=== PATIENT | male | born 1980 | race Caucasian/White ===

== ENCOUNTER 2019-11-11 12:16 | Emergency (ER) | payer BC, SELFPAY ==
[2019-11-11 12:21] VITALS: BP 115/74; PULSE 73; RESP 16; TEMP 37.5; O2SAT 97
--- NOTE | 2019-11-11 12:40 | ED.URI ---
HPI - URI/Sore Throat General Chief Complaint: Upper Respiratory Infection Stated Complaint: FEVER/BODY ACHES Time Seen by Provider: 11/11/19 12:40 Source: patient and RN notes reviewed Mode of arrival: ambulatory Limitations: no limitations History of Present Illness HPI Narrative: 39-year-old male accompanied by family presents to express care with complaints of sore throat, sinus congestion and sinus pressure with headache,body aches with fevers since Saturday. Patient states his fever has been as high as 103.8 he has been taking Tylenol and ibuprofen for his symptoms. Patient denies anyone else in household to be ill denies any recent travel or any shortness of breath. Patient has clear lungs upon auscultation, no tachypnea or accessory muscle use SaO2 97% on room air MD elicited complaint: fever, sore throat, rhinorrhea, nasal congestion, sinus pain and other (Body aches) Onset (ago): day(s) (4) Consistency: constant Severity: moderate Pain scale (0-10): 3 Description of mucous: clear Able to tolerate fluids by mouth: Yes Exacerbating factors: swallowing Relieving factors: nothing Associated symptoms: fever, chills, myalgias, rhinorrhea, nasal congestion and sore throat Treatments prior to arrival: acetaminophen Related Data Allergies Allergy/AdvReac Type Severity Reaction Status Date / Time No Known Allergies Allergy Unverified 12/19/14 11:47 Review of Systems Review of Systems: Narrative: CONSTITUTIONAL: positive fever, chills, or sweats. EYES: Denies visual changes, redness, or discharge. ENT: positive rhinorrhea, congestion, sore throat, no otalgia. CARDIOVASCULAR: Denies chest pain, palpitations, or edema. RESPIRATORY: Denies cough or dyspnea. GASTROINTESTINAL: Denies abdominal pain, nausea, vomiting, or diarrhea. GENITOURINARY: Denies dysuria or hematuria. SKIN: Denies rash or itching. MUSCULOSKELETAL: Denies back pain, joint pain, positive body aches NEUROLOGIC: Positive headache, numbness, or weakness. PSYCHIATRIC: Denies anxiety or depression. All systems reviewed & are unremarkable except as noted in HPI and below PMFSH Past Medical History Medical History (Updated 11/11/19 @ 13:14 by Christine Mueller NP) No significant medical problems Social History Social History (Updated 03/18/20 @ 13:13 by Christine Mueller NP) Smoking status: Never smoker Alcohol intake: current Living arrangements: with family Gender identity (if verbalized by the patient): Male Comments At time of signature, agree with nursing past medical, social history. There is no relevant family history pertinent to the presenting complaint Exam Narrative: Exam Narrative: GENERAL:ill-appearing, well-nourished, and in no acute distress. HEAD: Normocephalic, atraumatic. EYES: PERRLA and EOMI. ENT: Nares red, clear rhinorrhea no epistaxis. Mucous membranes moist.TM's normal with good light reflex, throat red, swollen with tonsils enlarged, uvula red and swollen with painful swallowing NECK: Supple.lymphadenopathy CHEST: Clear to auscultation. No respiratory distress.no dyspnea, SAO2 97% on room air HEART: Regular rate and rhythm. No murmur heard. Normal peripheral pulses. ABDOMEN: Soft, nontender, nondistended, normal active bowel sounds. EXTREMITIES: Normal range of motion. No edema. SKIN: Warm, dry, no rash. NEURO: No focal deficits. Alert and oriented x3. Course Vital Signs Vital signs: Vital Signs Temperature 37.5 C 11/11/19 12:21 Pulse Rate 73 11/11/19 12:21 Respiratory Rate 16 11/11/19 12:21 Blood Pressure 115/74 11/11/19 12:21 Pulse Oximetry 97 11/11/19 12:21 Temperature 37.5 C 11/11/19 12:21 Pulse Rate 73 11/11/19 12:21 Respiratory Rate 16 11/11/19 12:21 Blood Pressure 115/74 11/11/19 12:21 Pulse Oximetry 97 11/11/19 12:21 MDM - URI/Sore Throat Differential Diagnosis Differential diagnosis: Likely upper respiratory infection, viral infection, influenza, pharyngitis and oth
== END 2019-11-11 13:10 | disposition home or self-care (01) ==
PROVIDERS: Emergency Provider Registered Nurse
DX: J06.9 Acute upper respiratory infection, unspecified (principal); J03.90 Acute tonsillitis, unspecified
CPT/HCPCS: 87081; 87804; 87880; 99203; G0463

== ENCOUNTER 2020-08-03 16:01 | Emergency (ER) | payer BC, SELFPAY ==
--- NOTE | ~2020-08-03 | CT_ITS ---
EXAMINATION: CT cervical spine wo con DATE: 08/03/2020 18:06 INDICATION: Neck pain TECHNIQUE: Computed tomography (CT) of the cervical spine was performed without intravenous contrast. The dose-length product (DLP) was 336.74 mGy-cm. Automated exposure control and iterative reconstruc tion technique were employed. COMPARISON: None FINDINGS: There is no fracture, dislocation, or subluxation. The vertebral body heights, alignment, a nd intervertebral disc spaces are normal. The paravertebral soft tissues are unremarkable. The odonto id is intact. There is fibrous union of the posterior C1 arch. IMPRESSION: 1. No acute osseous abnormality. Reviewed, dictated and finalized at location A. [employer] REPAIRER SPECIAL
--- NOTE | ~2020-08-03 | XR_ITS ---
XR shoulder RT min 2V DATE: 08/03/2020 16:43 INDICATION: Posterior shoulder pain and limited range of motion following injury TECHNIQUE: 3 views COMPARISON: None FINDINGS: No fracture or dislocation, periosteal reaction or bone destruction or abnormal soft tissue calcification. Normal alignment at the acromioclavicular and glenohumeral joints. IMPRESSION: Negative Reviewed, dictated and finalized at location A. IFIED TECHNICIAN SPECIALIST IMPRESSION: Negative
[2020-08-03 16:09] VITALS: BP 125/68; PULSE 81; TEMP 36; O2SAT 100
--- NOTE | 2020-08-03 16:50 | PC.NURSE ---
provider in room now. Xray back. no dislocation or fracture noted.
[2020-08-03] MEDS: KETOROLAC 30 MG/ML VIAL (*BKC) IM (17:49)
--- NOTE | 2020-08-03 19:00 | PC.NURSE ---
all tests resulted. waiting for further orders from provider vs disposition. will get sling ready for right shoulder.
--- NOTE | 2020-08-03 19:14 | ED.UPPEXIN ---
HPI - Extremity Injury (Upper) General Chief Complaint: Extremity Injury, Upper Stated Complaint: right shoulder injury/ sp fall Time Seen by Provider: 08/03/20 16:21 Source: patient Mode of arrival: ambulatory Limitations: no limitations History of Present Illness HPI narrative: 40-year-old male In good health Reports falling off a skateboard and landing on his right shoulder Complains of pain which is mostly posterior Pain is worse with any movements but particularly bad with abduction He does not think he hit his head did not lose consciousness and does not really have neck pain, however the pain does worsen if he turns or flexes his head to the affected side Related Data Allergies Allergy/AdvReac Type Severity Reaction Status Date / Time No Known Allergies Allergy Unverified 01/29/20 09:37 Review of Systems Review of Systems: All systems reviewed & are unremarkable except as noted in HPI and below Constitutional: Constitutional: Denies headache(s) ENT: Denies headache(s) Cardiovascular: Cardiovascular: Denies chest pain, Denies leg edema, Denies palpitations and Denies dyspnea Respiratory: Respiratory: Denies cough and Denies dyspnea Gastrointestinal: Gastrointestinal: Denies nausea and Denies vomiting Musculoskeletal: Musculoskeletal: Denies deformity, Reports arthralgias, Reports joint swelling, Denies muscle weakness and Denies numbness Integumentary/Breasts: Skin/Breast: Denies rash and Denies wounds Neurologic: Denies headache(s), Denies focal weakness, Denies numbness and Denies weakness Psychiatric: Psychiatric: Reports no additional psychiatric complaints Endocrine: Endocrine: Denies fatigue and Denies palpitations Hematologic/Lymphatic: Hematologic/Lymphatic: Denies easy bleeding and Denies easy bruising [facility] Past Medical History Medical History (Updated 08/03/20 @ 19:24 by Daniel Nina MD) No significant medical problems Family History Family History (System 01/29/20 @ 09:37 by Johana Dupont) Father Hypertension Mother Family history of alcoholism, Onset Age: 56 Patient's mother is Social History Social History (System 01/29/20 @ 09:37 by Johana Dupont) Smoking status: Never smoker Alcohol intake: current Gender identity (if verbalized by the patient): Male Exam Const: General: no acute distress, well developed, alert and awake Nutritional Appearance: well nourished Orientation/consciousness: patient oriented x3 (alert) Limitations: no limitations HENMT: Head: normocephalic and atraumatic Ears: external ears normal General nose exam: No nasal discharge present and no epistaxis Face and sinus: face symmetric Eyes: Conjunctivae: conjunctivae normal Sclera: sclerae normal EOM: EOMs intact bilaterally Neck: Neck: normal visual inspection, supple and no JVD Other: No midline or paraspinous tenderness Flexion or rotation to the right does somewhat worsen the shoulder discomfort Chest: Chest palpation & inspection: normal inspection of the chest and deferred Resp: Effort & Inspection: normal respiratory effort Auscultation: other (BS =) Cardio: Heart sounds: no gallops GI: Inspection: normal to inspection Back/Spine/Pelvis: Thoracic/Lumbar Spine: thoracic and lumbar spine normal to inspection Skin: General skin exam: normal color and no rashes or lesions noted Neuro: General: patient oriented x3 (alert), moves all extremities and no focal motor deficits Cranial nerves: Yes facial symmetry Speech: normal speech Extrem: General: normal to inspection and full ROM Other: No obvious deformity to the right shoulder Arm is held next to the chest with arm in the lap Range of motion testing is limited by pain There does not seem to be subacromial tenderness or tenderness over the biceps tendon There is tenderness over the lateral part of the scapula but no bruising or abrasion Psych: Affect: normal affect
[2020-08-03 19:40] VITALS: BP 152/78; PULSE 88; RESP 18; O2SAT 100
== END 2020-08-03 19:42 | disposition home or self-care (01) ==
PROVIDERS: Emergency Provider Emergency Medicine
DX: S49.91XA Unspecified injury of right shoulder and upper arm, initial encounter (principal); V00.131A Fall from skateboard, initial encounter
CPT/HCPCS: 72125; 73030; 96372; 99284; A4565; J1885

== ENCOUNTER 2020-08-11 09:08 | Outpatient (CLI) | payer BC, SELFPAY ==
--- NOTE | ~2020-08-11 | MR_ITS ---
EXAMINATION: MR shoulder RT wo con DATE: 08/11/2020 10:13 INDICATION: Right shoulder pain. TECHNIQUE: Magnetic resonance imaging (MRI) of the right shoulder was performed without intravenous c ontrast. Sequences included axial PD-weighted FS FSE, coronal oblique PD-weighted FS FSE and T2-weigh isabella FS FSE, and sagittal oblique T2-weighted FS FSE and T1-weighted FSE. COMPARISON: Right shoulder radiographs 08/03/2020 FINDINGS: Coracoacromial arch: The acromion undersurface is curved in morphology (type II). No fracture. There is mild inferior subl uxation of acromion with respect to distal clavicle. There is edema in the soft tissues around distal clavicle. There are tears of the superior and inferior acromioclavicular ligaments. There is a parti al tear of trapezoid component of coracoclavicular ligament. Conoid component of coracoclavicular lig ament is intact. There is subcutaneous edema near distal clavicle. Rotator cuff: There is mild supraspinatus and infraspinatus tendinopathy. Teres minor tendon is normal. Subscapular is tendon is normal. There is no asymmetric fatty atrophy of the rotator cuff muscle bellies. Biceps tendon and glenoid labrum: Biceps tendon is in bicipital groove. There is mild intra-articular biceps tendinopathy. There is deg eneration of superior labrum without well-defined tear. Fluid: There is no glenohumeral joint effusion. Bones/cartilage: The glenoid cartilage is normal. Humeral head cartilage is normal. IMPRESSION: 1. Type II acromioclavicular injury. 2. Mild rotator cuff tendinopathy. No tear. 3. Mild intra-articular biceps tendinopathy. Reviewed, dictated and finalized at location A. PROGRAMMER
== END 2020-08-11 09:09 | disposition home or self-care (01) ==
LOC: ANHIMG 09:12
PROVIDERS: Visit Provider Orthopaedic Surgery
DX: M25.511 Pain in right shoulder (principal)
CPT/HCPCS: 73221